=== PATIENT | female | born 2000 | race Caucasian/White ===

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

== ENCOUNTER 2019-02-17 21:45 | Observation (INO) ==
[2019-02-17 22:32] LABS: Hematocrit 40.9 % (37.0-47.0); Hemoglobin 14.1 gm/dL (12.5-16.0); Mean Cell Volume 88.1 fl (78-100); Mean Corpuscular Hemoglobin 30.4 pg (27-31); Mean Corpuscular Hgb Conc 34.5 g/dl (32-36); Neutrophil # 8.4 K/mm3 (1.3-6.0); Neutrophil % 65.7 % (42-75.0); Platelet Count 433 K/mm3 (150-450); Red Blood Count 4.64 M/mm3 (4.2-5.4); Red Cell Distribution Width 13.6 % (11.5-14.0); White Blood Count 12.8 K/mm3 (4.0-10.5)
[2019-02-17 22:37] LABS: Urine Bilirubin Negative (NEGATIVE); Urine Blood Negative /ul (NEGATIVE); Urine Ketone Negative (NEGATIVE); Urine Nitrite Negative (NEGATIVE); Urine Protein Negative (NEGATIVE); Urine Urobilinogen Normal (NORMAL)
[2019-02-17 22:49] LABS: Cocaine Ur Negative (NEGATIVE); Urine Barbiturate Negative (NEGATIVE); Urine Benzodiazepines Negative (NEGATIVE); Urine Opiates Negative (NEGATIVE); Urine PCP Negative (NEGATIVE)
[2019-02-17 22:50] LABS: Urine THC Positive (NEGATIVE)
[2019-02-17 22:55] LABS: Urine Appearance Clear (CLEAR); Urine Bacteria 1+; Urine Color Dark Yellow; Urine RBC None Seen /hpf (0-5); Urine WBC None Seen /hpf (0-5)
[2019-02-17 22:59] LABS: ALT 20 U/L (19-67); AST 16 U/L (0-48); Albumin * 4.4 gm/dl (3.4-5.0); Alkaline Phosphatase * 108 U/L (50-170); Anion Gap 17.1 mmol/L (6.8-13.8); BUN/Creatinine Ratio 12.8 (9.0-21.6); Bilirubin, Total 0.5 mg/dL (0.0-1.1); Blood Urea Nitrogen 12 mg/dL (3-23); Calcium * 9.6 mg/dL (7.9-10.9); Carbon Dioxide 23.8 mmol/L (24-32.6); Chloride 104 mmol/L (97-106); Glucose * 98 mg/dL (70-110); Potassium 3.9 mmol/L (3.4-4.6); Salicylate Less than 2.8 mg/dL (2.8-20.0); Sodium 141 mmol/L (132-142); TSH * 3.504 uIU/mL (0.516-4.13); Total Protein 8.6 gm/dL (6.2-8.2)
[2019-02-17] MEDS ORDERED: ZIPRASIDONE MESYLATE 20 MG VIAL IM ONE (23:08)
[2019-02-17] MEDS ORDERED: WATER FOR INJECTION,STERILE 20 ML VIAL ONE (23:17)
--- NOTE | 2019-02-18 03:58 | ERNOTE ---
Neuro HPI ER Record Date of Service: 02/18/19 Presenting Symptoms: confusion Time Seen by Provider: 02/17/19 22:19 Source: patient, family Immunizations: IMMUNIZATION HX Immunizations Up to Date No History of Influenza Vaccine No Hx Pneumococcal Vaccination No Allergies/Adverse Reactions: Allergies Allergy/AdvReac Type Severity Reaction Status Date / Time No Known Allergies Allergy Verified 01/19/19 08:33 Home Medications: HOME MEDICATIONS lisdexamfetamine 70 mg capsule 70 mg PO DAILY #30 cap 01/19/19 [Last Taken Unknown] quetiapine ER 150 mg tablet,extended release 24 hr 150 mg PO HS #30 tab 01/19/19 [Last Taken Unknown] - History of Present Illness Narrative: patient presents to ed with complaint of alterred mental status, patient relates she smoked something, does not know what, denies homicidal/suicdal ideation Onset: cannot confirm onset Severity: moderate Context: other - no injury - Character of Deficits Baseline Cognition: Present: alert but confused Baseline Gait: Present: walks w/o assistance Associated Symptoms: Reports: altered mental status, disoriented, confused, agitated, trouble concentrating Review of Systems - Review of Systems Constitutional: Present: See HPI EYE: Present: no symptoms reported ENT: Present: no symptoms reported Respiratory: Present: no symptoms reported Cardiology: Present: no symptoms reported Gastrointestinal/Abdominal: Present: no symptoms reported Genitourinary: Present: no symptoms reported Musculoskeletal: Present: no symptoms reported Skin: Present: no symptoms reported Neurological: Present: See HPI, anxiety, depressed, other - patient manic Endocrine: Present: no symptoms reported Hematologic/Lymphatic: Present: no symptoms reported Psych: Present: See HPI, anxiety, other - patient presents in manic state All Other Systems: All systems neg except as marked Medical History (Last Reviewed 01/19/19 @ 08:32 by Tamie Thompson) Oppositional defiant disorder (Chronic) Attention deficit hyperactivity disorder (Chronic) Borderline personality disorder in adolescent (Chronic) ADHD (attention deficit hyperactivity disorder) Bipolar disorder, current episode mixed, moderate Conduct disorder, childhood-onset type Depression Insomnia due to mental disorder Intellectual disability Oppositional defiant disorder Homicidal ideations Suicidal ideations Suicide attempt 2013 cutting self with glass Surgical History: Surgical History (Last Reviewed 01/19/19 @ 08:32 by Tamie Thompson) History of dental surgery Family History: Family History (Last Reviewed 01/19/19 @ 08:32 by Tamie Thompson) Grandmother Cancer Diabetes Grandfather Diabetes Mother Hypothyroidism Father Schizophrenia Social History: Preferred Language Kiswahili Smoking Status Current some day smoker Abuse History No History of abuse Psych History Psychiatric Hx Alcohol Use occasionally Drug Use other (Last Updated 01/19/19 @ 09:15 by Luz Willard [facility]) No Social History Section defined Physical Exam - Physical Exam General Appearance: Present: moderate distress, anxious Head Exam: Present: normal inspection, no evidence of injury Eye Exam: Normal inspection: bilateral, PERRL: bilateral, EOMI: bilateral Ears, Nose, Throat: Present: normal ENT inspection, normal pharynx Neck: Present: normal inspection, nontender Respiratory: Present: no respiratory distress, normal breath sounds, no accessory muscle use, chest nontender, lungs clear Cardiovascular/Chest: Present: no murmur, normal peripheral pulses, tachycardia Gastrointestinal/Abdominal: Present: normal bowel sounds, nontender, nondistended, soft, no organomegaly Back Exam: Present: normal inspection, normal range of motion, no CVA tenderness Extremity Exam: Present: normal inspection, non-tender, normal range of motion, no edema Neurological Exam: Present: alert, oriented, normal mood/affect, no motor/sensory deficits Skin Exam: Present: normal color, warm/dry Lymphatic Exam: Present: no adenopathy [place] Coma Scale - Assess Eye Opening: To Voice Motor: Obeys Commands Verbal: Confused - Total Coma Scale Total: 13 Progress - Date and Time Seen: Date and Time: 02/18/19 03:56 patient calm and sleeping after geodon given - Results and Orders Patient's Lab Results:: I have reviewed the patient's lab results. - Vital Signs Patient's Vital Signs:: I have reviewed the patient's vital signs. Vital Signs: Vital Signs 02/17/19 21:49 02/17/19 23:30 Temperature 36.4 C Pulse Rate 124 H 119 H Respiratory Rate 22 H 20 Blood Pressure 131/51 O2 Sat by Pulse Oximetry 96 99 - Progress/Reassessment Chief Complaint: Altered Mental Status Progress:: Improved - Transfer of Care Expected Disposition: Admit Plan - Plan Plan: to be admitted, case discussed with dr emmett Travis Clinical Impression: Overdose - Departure Disposition: Still a patient Condition: Serious
[2019-02-18] MEDS ORDERED: NORMAL SALINE 1,000 ML IV PRN (04:23)
--- NOTE | 2019-02-18 10:44 | HP ---
Chief Complaint - Chief Complaint Date of Service: 02/18/19 Time of Service: 10:21 Chief Complaint: ingestion History of Present Illness: Patient with PMHx of borderline personality disorder, ODD, ADD was seen in the ED for altered mental status. She admitted to smoking something with friends, but was not sure what. She was given Geodon and calmed down. At the time of my exam approximately 6 hours from admission, she reports feeling fine. She states she felt like she was having a heart attack. She responds to most questioning with "I don't know." She does not know if she had recent symptoms of infection. Does not think she has had fevers, shortness of breath, abdominal pain, dysuria. Is not sure if she has skin problems. Urine tox screen was positive for meth and marijuana. Negative ETOH. No concerning findings on CBC, CMP. Medical History (Last Reviewed 02/18/19 @ 05:54 by Aleyda Foss RN) Oppositional defiant disorder (Chronic) Attention deficit hyperactivity disorder (Chronic) Borderline personality disorder in adolescent (Chronic) ADHD (attention deficit hyperactivity disorder) Bipolar disorder, current episode mixed, moderate Conduct disorder, childhood-onset type Depression Insomnia due to mental disorder Intellectual disability Oppositional defiant disorder Homicidal ideations Suicidal ideations Suicide attempt 2014 cutting self with glass Surgical History: Surgical History (Last Reviewed 02/18/19 @ 05:54 by Aleyda Foss RN) History of dental surgery Family History: Family History (Last Reviewed 02/18/19 @ 05:54 by Aleyda Foss RN) Grandmother Cancer Diabetes Grandfather Diabetes Mother Hypothyroidism Father Schizophrenia Social History: Patient Lives/Resources Home Utilized Occupation unemployed Preferred Language Slovenian Do you have any confucianist or No cultural preference? Smoking Status Current every day smoker Have you smoked in the past 12 Yes months Do you dip or chew tobacco No Abuse History No History of abuse Psych History Psychiatric Hx Alcohol Use occasionally Drug Use other (Last Updated 01/19/19 @ 09:15 by ENZO Queen) No Social History Section defined Review Of Systems (GEN) - Review of Systems Generalized/Overall Review: Present: No Symptoms Reported Immunizations: IMMUNIZATION HX Immunizations Up to Date No History of Influenza Vaccine No Hx Pneumococcal Vaccination No Allergies/Adverse Reactions: Allergies Allergy/AdvReac Type Severity Reaction Status Date / Time No Known Allergies Allergy Verified 01/19/19 08:33 Home Medications: HOME MEDICATIONS lisdexamfetamine 70 mg capsule 70 mg PO DAILY #30 cap 01/19/19 [Last Taken Unknown] quetiapine ER 150 mg tablet,extended release 24 hr 150 mg PO HS #30 tab 01/19/19 [Last Taken Unknown] Exam - Exam Vital Signs: Vital Signs - Last Taken Temp 36.9 C 02/18/19 08:22 Pulse 95 02/18/19 08:22 Resp 20 02/18/19 08:22 BP 122/62 02/18/19 08:22 Pulse Ox 100 02/18/19 08:22 Constitutional: Present: Alert, Oriented x3, Young. Absent: Cooperative Respiratory: Present: normal breath sounds, No wheezing Cardiovascular/Chest: Present: regular rate, rhythm Abdomen: Present: Normal bowel sounds, soft, nontender Extremity: Absent: lower extremity edema Skin Exam: Present: other - no visible abnormalities Eye contact: Present: uncooperative Diagnostic Studies: Abnormal Lab Results 02/17/19 02/17/19 02/17/19 Range/Units 22:30 22:30 22:30 WBC 12.8 H (4.0-10.5) K/mm3 Immature Gran # (Auto) 0.05 H (0.000-0.0310) K/mm3 Neutrophils # 8.4 H (1.3-6.0) K/mm3 Monocytes # 1.2 H (0.0-1.0) k/mm3 Carbon Dioxide (24-32.6) mmol/L Anion Gap (6.8-13.8) mmol/L Total Protein (6.2-8.2) gm/dL Urine Bacteria 1+ H (NONE) Salicylates (2.8-20.0) mg/dL Acetaminophen (10.0-30.0) mcg/mL Urine Amphetamine Positive H (NEGATIVE) Urine Marijuana (THC) Positive H (NEGATIVE) 02/17/19 Range/Units 22:30 WBC (4.0-10.5) K/mm3 Immature Gran # (Auto) (0.000-0.0310) K/mm3 Neutrophils # (1.3-6.0) K/mm3 Monocytes # (0.0-1.0) k/mm3 Carbon Dioxide 23.8 L (24-32.6) mmol/L Anion Gap 17.1 H (6.8-13.8) mmol/L Total Protein 8.6 H (6.2-8.2) gm/dL Urine Bacteria (NONE) Salicylates Less than 2.8 L (2.8-20.0) mg/dL Acetaminophen Less than 0.2 L (10.0-30.0) mcg/mL Urine Amphetamine (NEGATIVE) Urine Marijuana (THC) (NEGATIVE) Laboratory Results WBC 12.8 K/mm3 (4.0-10.5) H 02/17/19 22:30 RBC 4.64 M/mm3 (4.2-5.4) 02/17/19 22:30 Hgb 14.1 gm/dL (12.5-16.0) 02/17/19: Hct 40.9 % (37.0-47.0) 02/17/19:30 MCV 88.1 fl (78-100) 02/17/19:30 MCH 30.4 pg (27-31) 02/17/19: MCHC 34.5 g/dl (32-36) 02/17/19:30 RDW 13.6 % (11.5-14.0) 02/17/19:30 Plt Count 433 K/mm3 (150-450) 02/17/19: MPV 9.0 fl (8-12.5) 02/17/19: Immature Gran % (Auto) 0.40 % (0.001-0.429) 02/17/19: Immature Gran # (Auto) 0.05 K/mm3 (0.000-0.0310) H 02/17/19 22:30 Neutrophils % 65.7 % (42-75.0) 02/17/19 22: Lymphocytes % 23.7 % (20-51) 02/17/19: Monocytes % 9.0 % (0.0-9) 02/17/19: Eosinophils % 0.9 % (0.0-3.0) 02/17/19: Basophils % 0.3 % (0.0-1.0) 02/17/19:30 Nucleated RBC % 0.0 k/mm3 (0-1) 02/17/19 22:30 Neutrophils # 8.4 K/mm3 (1.3-6.0) H 02/17/19 22:30 Lymphocytes # 3.03 k/mm3 (1.5-3.5) 02/17/19 22:30 Monocytes # 1.2 k/mm3 (0.0-1.0) H 02/17/19 22:30 Eosinophils # 0.1 k/mm3 (0.0-0.7) 02/17/19 22:30 Absolute Basophils 0.0 k/mm3 (0.0-0.1) 02/17/19 22:30 Sodium 141 mmol/L (132-142) 02/17/19 22:30 Plasma Sodium 141 mmol/L (130-142) 02/17/19 22:30 Potassium 3.9 mmol/L (3.4-4.6) 02/17/19 22:30 Chloride 104 mmol/L (97-106) 02/17/19 22:30 Carbon Dioxide 23.8 mmol/L (24-32.6) L 02/17/19 22:30 Anion Gap 17.1 mmol/L (6.8-13.8) H 02/17/19 22:30 BUN 12 mg/dL (3-23) 02/17/19 22:30 Creatinine 0.94 mg/dL (0.4-1.4) 02/17/19 22:30 Est GFR (Non-Af Amer) 82 mL/min (60-130) 02/17/19 22:30 BUN/Creatinine Ratio 12.8 (9.0-21.6) 02/17/19 22:30 Random Glucose 98 mg/dL (70-110) 02/17/19 22:30 Calcium 9.6 mg/dL (7.9-10.9) 02/17/19 22:30 Calcium Adj for Albumin 9.0 mg/dL (8.4-10.2) 02/17/19 22:30 Total Bilirubin 0.5 mg/dL (0.0-1.1) 02/17/19 22:30 AST 16 U/L (0-48) 02/17/19 22:30 ALT 20 U/L (19-67) 02/17/19 22:30 Alkaline Phosphatase 108 U/L (50-170) 02/17/19 22:30 Total Protein 8.6 gm/dL (6.2-8.2) H 02/17/19 22:30 Albumin 4.4 gm/dl (3.4-5.0) 02/17/19 22:30 TSH 3.504 uIU/mL (0.516-4.13) 02/17/19 22:30 Urine Color Dark yellow 02/17/19 22:30 Urine Appearance Clear (CLEAR) 02/17/19 22:30 Urine pH 7.0 pH (5.0-7.0) 02/17/19 22:30 Ur Specific [place] 1.020 SP.GR. (1.005-1.010) 02/17/19 22:30 Urine Protein Negative mg/dL (NEGATIVE) 02/17/19 22:30 Urine Glucose (UA) Negative mg/dL (NEGATIVE) 02/17/19 22: Urine Ketones Negative mg/dL (NEGATIVE) 02/17/19 22:30 Urine Blood Negative /ul (NEGATIVE) 02/17/19 22:30 Urine Nitrate Negative (NEGATIVE) 02/17/19 22:30 Urine Bilirubin Negative mg/dl (NEGATIVE) 02/17/19 22:30 Urine Urobilinogen Normal EU/dl (NORMAL) 02/17/19 22:30 Ur Leukocyte Esterase Negative /ul (NEGATIVE) 02/17/19 22:30 Urine RBC None seen /hpf (0-5) 02/17/19 22:30 Urine WBC None seen /hpf (0-5) 02/17/19 22:30 Ur Epithelial Cells 0-5 /hpf (0-5) 02/17/19 22:30 Urine Bacteria 1+ (NONE) H 02/17/19 22:30 Urine Culture Comments No culture indicated 02/17/19 22:30 Salicylates Less than 2.8 mg/dL (2.8-20.0) L 02/17/19 22:30 Urine Opiates Screen Negative (NEGATIVE) 02/17/19 22:30 Acetaminophen Less than 0.2 mcg/mL (10.0-30.0) L 02/17/19 22:30 Barbiturate Screen Negative (NEGATIVE) 02/17/19 22:30 Ur Phencyclidine Scrn Negative (NEGATIVE) 02/17/19 22:30 Urine Amphetamine Positive (NEGATIVE) H 02/17/19 22:30 U Benzodiazepines Scrn Negative (NEGATIVE) 02/17/19 22:30 Urine Cocaine Screen Negative (NEGATIVE) 02/17/19 22:30 Urine Marijuana (THC) Positive (NEGATIVE) H 02/17/19 22:30 Ethyl Alcohol Less than 3.0 mg/dL (0.0-10.0) 02/17/19 22:30 Assessment/Plan - Assessment/Plan (1) Overdose Assessment: Patient smoked an unknown substance last night, which caused her to feel like she was having a heart attack. I do not believe this was reported to the ED physician. Will obtain stat troponin. EKG read sinus tachy with short [place]. She is now calm, and no longer having the symptoms she was having last night. Other than the positive tox screen, there were no other concerning findings. If troponin is negative, will DC this afternoon. Problem: Resolved Qualifiers: Encounter type: initial encounter Injury intent: accidental or unintentional Qualified Code(s): T50.901A - Poisoning by unspecified drugs, medicaments and biological substances, accidental (unintentional), initial encounter (2) Borderline personality disorder in adult Problem: Chronic (3) Oppositional defiant disorder Problem: Chronic
--- NOTE | 2019-02-18 11:21 | DS ---
(1) Overdose Problem: Resolved Qualifiers: Encounter type: initial encounter Injury intent: accidental or unintentional Qualified Code(s): T50.901A - Poisoning by unspecified drugs, medicaments and biological substances, accidental (unintentional), initial encounter (2) Borderline personality disorder in adult Problem: Chronic (3) Oppositional defiant disorder Problem: Chronic Description of Stay: Patient was seen in the ED for AMS after smoking an unknown substance with friends. She was inconsolable, pacing, crying, and was given Geodon in the ED. Tox screen positive for meth and marijuana. ETOH negative, and no significant findings on the rest of her labs. At the time of my exam, she was feeling no longer symptomatic. She reports c oming to the ED because she felt like she was having a heart attack. Troponin was subsequently checked, and was negative. EKG showed sinus tachy with short DC. She was no longer tachycardic during my exam. The dangers of drug use were discussed, including additional hospitalizations, potential intermediate time, or . She was agreeable with [facility]. Procedures Performed: none Results and Findings: Lab Pending Results 02/17/19 22:30: Urine Color Dark yellow, Urine Appearance Clear, Urine pH 7.0, Ur Specific Alpha 1.020, Urine Protein Negative, Urine Glucose (UA) Negative, Urine Ketones Negative, Urine Blood Negative, Urine Nitrate Negative, Urine Bilirubin Negative, Urine Urobilinogen Normal, Ur Leukocyte Esterase Negative, Urine RBC None seen, Urine WBC None seen, Ur Epithelial Cells 0-5, Urine Bacteria 1+ H, Urine Culture Comments No culture indicated 02/17/19 22:30: Urine Opiates Screen Negative, Barbiturate Screen Negative, Ur Phencyclidine Scrn Negative, Urine Amphetamine Positive H, U Benzodiazepines Scrn Negative, Urine Cocaine Screen Negative, Urine Marijuana (THC) Positive H 02/17/19 22:30: WBC 12.8 H, RBC 4.64, Hgb 14.1, Hct 40.9, MCV 88.1, MCH 30.4, MCHC 34.5, RDW 13.6, Plt Count 433, MPV 9.0, Immature Gran % (Auto) 0.40, Immature Gran # (Auto) 0.05 H, Neutrophils % 65.7, Lymphocytes % 23.7, Monocytes % 9.0, Eosinophils % 0.9, Basophils % 0.3, Nucleated RBC % 0.0, Neutrophils # 8.4 H, Lymphocytes # 3.03, Monocytes # 1.2 H, Eosinophils # 0.1, Absolute Basophils 0.0 02/17/19 22:30: Sodium 141, Plasma Sodium 141, Potassium 3.9, Chloride 104, Carbon Dioxide 23.8 L, Anion Gap 17.1 H, BUN 12, Creatinine 0.94, Est GFR (Non- Af Amer) 82, BUN/Creatinine Ratio 12.8, Random Glucose 98, Calcium 9.6, Calcium Adj for Albumin 9.0, Total Bilirubin 0.5, AST 16, ALT 20, Alkaline Phosphatase 108, Total Protein 8.6 H, Albumin 4.4, TSH 3.504, Salicylates Less than 2.8 L, Acetaminophen Less than 0.2 L, Ethyl Alcohol Less than 3.0 02/18/19 10:44: Troponin I Less than 0.017 Discharge Location: Home Disposition: Home self-care Condition: Good Discharge Activity: Activity as tolerated Discharge Diet: General/regular food Complete Home Medications List: Complete Home Medication List: lisdexamfetamine 70 mg capsule 70 mg PO DAILY #30 cap 01/19/19 quetiapine ER 150 mg tablet,extended release 24 hr 150 mg PO HS #30 tab 01/19/19
[2019-02-18 12:04] VITALS: BP 124/76
== END 2019-02-18 11:50 | disposition home or self-care (01) ==
LOC: MS 21:45 → ER 21:45
PROVIDERS: ADMIT Family Medicine; ATTEND Family Medicine
CPT/HCPCS: 36415; 80050; 80307; 81001; 84484; 93005; 96372; 99285; G0378; G0480